=== PATIENT | female | born 1960 | race Caucasian/White ===

== ENCOUNTER 2019-02-11 06:46 | Day surgery (SDC) | payer OTHER ==
[~2019-02-11] VITALS: Ht 152.4 cm; Wt 82.3 kg
[~2019-02-11 06:46] MED LIST: ASPIRIN X; BASAGLAR; BENAZEPRIL; METFORMIN; METOPROLOL
[2019-02-11 07:53] VITALS: Ht 152.4 cm; Wt 82.3 kg
[2019-02-11 08:14] VITALS: BP 178/81; PULSE 76; RESP 14
[2019-02-11] MEDS ORDERED: FENTAnyl 50 MCG/ML VIAL ONE (08:21)
[2019-02-11] MEDS ORDERED: PROPOFOL 40 ML ONE (08:21)
[2019-02-11] MEDS ORDERED: LIDOCAINE 100 MG SYRINGE ONE (08:21)
[2019-02-11 08:51] VITALS: BP 141/76; PULSE 78; RESP 20
[2019-02-11 08:56] VITALS: BP 136/63; PULSE 79; RESP 20
[2019-02-11 09:11] VITALS: BP 167/72; PULSE 80; RESP 16
[2019-02-11 09:15] VITALS: BP 158/69; PULSE 78; RESP 18
[2019-02-11 09:21] VITALS: BP 134/66; PULSE 78; RESP 14
== END 2019-02-11 11:41 | disposition home or self-care (01) ==
LOC: GIL 06:46
PROVIDERS: ATTEND Internal Medicine Gastroenterology
DX: R19.5 Other fecal abnormalities (principal); K20.8 Other esophagitis; D12.4 Benign neoplasm of descending colon; D12.8 Benign neoplasm of rectum; K29.50 Unspecified chronic gastritis without bleeding; K64.9 Unspecified hemorrhoids; E11.9 Type 2 diabetes mellitus without complications; I10 Essential (primary) hypertension
CPT/HCPCS: 43239; 45380; 82962; 88305; 88312; 88313; J2001; J3010; Z7610